=== PATIENT | male | born 1985 | race Native Hawaiian/Other Pacific Islander ===

== ENCOUNTER 2018-05-31 13:44 | Emergency (ER) | payer OTHER ==
[2018-05-31 14:12] VITALS: BP 146/82; PULSE 74; RESP 18; TEMP 98; O2SAT 99
[2018-05-31] MEDS ORDERED: Emtricitabine-Tenofovir 200 mg-300 mg Tab PO STA (14:20)
[2018-05-31] MEDS ORDERED: Tdap Vaccine 0.5 ml Vial (10-64 yrs) IM ONE ×2 (14:37→15:50)
--- NOTE | 2018-05-31 14:38 | ED PDOC ---
HPI: General Adult Time Seen by Provider: 05/31/18 14:12 Chief Complaint (Nursing): Needle Stick Chief Complaint (Provider): Needle Stick History/Exam Limitations: no limitations Onset/Duration Of Symptoms: Hrs (x2) Additional Complaint(s): 32 year old male with no significant past medical history presents to the ED s/ p needle stick onset noon today. Patient states he was accidentally stick with a used insulin needle on his right middle finger at work. 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 Patient reports that at the time, there was bleeding that has now stopped. His tetanus is not up to date. He denies any other medical complaints. Of note, patient irrigated wound himself and is now requesting post exposure prophylaxis for HIV. Past Medical History Reviewed: Historical Data, Nursing Documentation, Vital Signs Vital Signs: Last Vital Signs Temp 98 F 05/31/18 14:10 Pulse 74 05/31/18 14:10 Resp 18 05/31/18 14:10 BP 146/82 05/31/18 14:10 Pulse Ox 99 05/31/18 18:28 - Medical History PMH: No Chronic Diseases - Surgical History Surgical History: No Surg Hx - Family History Family History: States: Unknown Family Hx - Home Medications Home Medications: Ambulatory Orders Medication Instructions Recorded Dolutegravir Sodium [Tivicay] 1 tab PO DAILY #27 tab 05/31/18 Emtricitabine/Tenofovir (Tdf) 1 each PO DAILY #27 tablet 05/31/18 [Truvada 200 mg-300 mg Tablet] - Allergies Allergies/Adverse Reactions: Allergies Allergy/AdvReac Type Severity Reaction Status Date / Time No Known Allergies Allergy Verified 05/31/18 14:10 Review of Systems ROS Statement: Except As Marked, All Systems Reviewed And Found Negative Musculoskeletal: Positive for: Other (needle stick on right middle finger) Physical Exam - Reviewed Nursing Documentation Reviewed: Yes Vital Signs Reviewed: Yes - Physical Exam Appears: Positive for: No Acute Distress Skin: Positive for: Normal Color, Warm, DRY Eye Exam: Positive for: Normal appearance Pulses-Radial (L): 2+ Pulses-Radial (R): 2+ Extremity: Positive for: Capillary Refill (less than 2 seconds), Other (right middle finger: no break in skin integrity ) Neurologic/Psych: Positive for: Alert, Oriented - Laboratory Results Result Diagrams: 05/31/18 14:45 08/06/18 14:45 - ECG O2 Sat by Pulse Oximetry: 99 (RA) Pulse Ox Interpretation: Normal - Progress ED Course And Treament: Provider explained the risk, benefits and side of effects of medications. Patient still wants to take them. Wound irrigated and cleansed. Medical Decision Making Medical Decision Making: Time: 14:17 Initial Plan: --CMP --Hepatitis B core AB --Hepatitis B surface AG --Hepatitis C antibody --CBC with differentials --Tivicay 50 mg PO --Truvada 1 tab --Rapid HIV screen --Rapid plasma reagin Advised to repeat HIV test in 1 month. Scribe Attestation: Documented by Melani Lema, acting as a scribe for Tommy Pascal PA-C. ~ Provider Scribe Attestation: All medical record entries made by the Scribe were at my direction and personally dictated by me. I have reviewed the chart and agree that the record accurately reflects my personal performance of the history, physical exam, medical decision making, and the department course for this patient. I have also personally directed, reviewed, and agree with the discharge instructions and disposition. Disposition - Clinical Impression Clinical Impression: Needle stick injury - Patient ED Disposition Is Patient to be Admitted: No - Disposition Referrals: [facility] [Outside] Disposition: Routine/Home Disposition Time: 16:25 Condition: STABLE Additional Instructions: JIM DUNN, thank you for letting us take care of you today. Your provider was Adriano Rodriguez III, DO and you were treated for WOC. The emergency medical care you received today was directed at your acute symptoms. If you were prescribed any medication, please fill it and take as directed. It may take several days for your symptoms to resolve. Return to the Emergency Department if your symptoms worsen, do not improve, or if you have any other problems. Please contact your doctor or call one of the physicians/clinics you have been referred to that are listed on the Patient Visit Information form that is included in your discharge packet. Bring any paperwork you were given at discharge with you along with any medications you are taking to your follow up visit. Our treatment cannot replace ongoing medical care by a primary care provider outside of the emergency department. Thank you for allowing the [facility] team to be part of your care today. If you had an X-Ray or CT scan: A Radiologist will review the ED reading if any change in treatment is needed we will contact you. If you had a blood, urine, or wound culture: It will take several days for the results, if any change in treatment is needed we will contact you. If you had an STI test: It will take 48 hours for the results. Please call after 1 week if you have not heard back. Prescriptions: Dolutegravir Sodium [Tivicay] 1 tab PO DAILY #27 tab Emtricitabine/Tenofovir (Tdf) [Truvada 200 mg-300 mg Tablet] 1 each PO DAILY # 27 tablet Instructions: Blood or Body Fluid Exposure Forms: [employer] ([place]ian) Print Language: ISRAELI
[2018-05-31 15:12] LABS: BASO # 0.1 K/uL (0.0-0.2); BASO % 0.8 % (0.0-2.0); EOS % 0.5 % (0.0-4.0); HEMOGLOBIN 16.6 g/dL (12.0-18.0); LYMPH # 1.4 K/uL (1.0-4.3); LYMPH % 17.1 % (20.0-40.0); MEAN CELL VOLUME 92.1 fl (80.0-94.0); MEAN CORPUSCULAR HEMOGLOBIN 31.6 pg (27.0-31.0); MEAN CORPUSCULAR HGB CONC 34.3 g/dL (33.0-37.0); MEAN PLATELET VOLUME 9.2 fl (7.2-11.7); MONO # 0.4 K/uL (0.0-0.8); MONO % 5.1 % (0.0-10.0); NEUT # 6.5 K/uL (1.8-7.0); NEUT % 76.5 % (50.0-75.0); NRBC % 0.1 % (0.0-0.0); RBC 5.25 Mil/uL (4.40-5.90); RED CELL DISTRIBUTION WIDTH 12.6 % (11.5-14.5); WHITE BLOOD COUNT 8.4 K/uL (4.8-10.8)
[2018-05-31 15:25] LABS: ALB/GLOB RATIO 1.2 (1.0-2.1); ALBUMIN 4.9 g/dL (3.5-5.0); ALT/SGPT 33 U/L (21-72); AST/SGOT 32 U/L (17-59); BLOOD UREA NITROGEN 14 mg/dl (9-20); CALCIUM 9.4 mg/dL (8.4-10.2); GFR AFRICAN-AMERICAN > 60; GFR NON-AFRICAN AMERICAN > 60
[2018-05-31 21:24] LABS: HEPATITIS B SURFACE AG Negative (NEGATIVE)
[2018-05-31 21:34] LABS: HEPATITIS B CORE AB NEGATIVE (NEGATIVE)
== END 2018-05-31 16:38 | disposition home or self-care (01) ==
LOC: H.ER 13:44
DX: S61.231A Puncture wound without foreign body of left index finger without damage to nail, initial encounter (principal); W46.1XXA Contact with contaminated hypodermic needle, initial encounter; Y99.0 Civilian activity done for income or pay; Z79.4 Long term (current) use of insulin